=== PATIENT | male | born 1965 | race Caucasian/White ===

== ENCOUNTER → 2019-02-21 | Day surgery (SDC) | payer BC ==
[~2019-02-21] MED LIST: IV RINGERS,LACTATED 1000ML 1,000 ML IV SCH; LIDOCAINE 2% PF 5 ML VIAL. ONE; LISI10TA2 PO; LISI1TAB3 PO; OMEP40CA5 PO; PROPOFOL 40 ML IV ONE
[2019-02-21 16:53] VITALS: BP 144/81
--- NOTE | 2019-02-23 16:06 | PATHOLOGY ---
[facility] Accession Number: [id number] . 01 Material submitted: . PART A: esophagus - DISTAL ESOPHAGUS BIOPSY. Modifiers: distal PART B: colon - DESCENDING COLON POLYP. Modifiers: descending . 01 Clinical history: . Anemia . 02 Diagnosis: A. Esophageal biopsies, distal esophagus: - Segments of hyperplastic squamous esophageal mucosa consistent with reflux esophagitis. . B. Colon biopsy, descending colon polyp: - Tubular adenoma. (JPM:jeremi; 02/23/2019) QMS/02/23/2019 . 02 Comment: Sections of the distal esophageal biopsy reveal segments of tangentially oriented, hyperplastic squamous esophageal mucosa, showing focal intraepithelial neutrophils and a few eosinophils. The findings are consistent with reflux esophagitis. There is no evidence of Fournier's change, dysplasia, or malignancy. . Sections of the descending colon biopsy reveal a tubular adenoma showing no high-grade dysplasia or evidence of malignancy. (JPM:jeremi; 02/23/2019) . 02 Electronically signed: . Aleksandar Little MD, Pathologist NPI- [id number] . 01 Gross description: . A. Received in formalin labeled "ZoeymichelldiegoEugene, distal esophagus BX," are 2 segments of atkinson soft tissue measuring 0.6 x 0.2 x 0.1 cm in aggregate dimensions and ranging from 0.1 to 0.5 cm in maximum dimension. The specimen is submitted entirely in cassette A1. . B. Received in formalin labeled "ZoeyEugene bledsoe, descending colon polyp," is a single segment of atkinson soft tissue measuring 0.5 cm in maximum dimension. The specimen is entirely submitted in cassette B1. (TSD; 02/22/2019) TOB/TOB . 02 Pathologist provided ICD-10: K21.0, D12.4 . 02 CPT . 416777, 404973 Specimen Comment: A courtesy copy of this report has been sent to Specimen Comment: [phone], . Specimen Comment: Report sent to / DR URBINA Performed at: [address] [facility], [place] [id number] MD Ray Reid MD Phone: [phone] Performed at: 02 [facility] [address] [place] [id number] MD Aleksandar Little MD Phone: [phone]
== END ==
LOC: ENDOS 14:50
PROVIDERS: ATTEND Internal Medicine Gastroenterology
DX: D12.4 Benign neoplasm of descending colon (principal); K21.0 Gastro-esophageal reflux disease with esophagitis; K64.0 First degree hemorrhoids; K31.9 Disease of stomach and duodenum, unspecified; F15.90 Other stimulant use, unspecified, uncomplicated; Z72.89 Other problems related to lifestyle
CPT/HCPCS: 43239; 45385; 88305; J2001; J2704; 45380